=== PATIENT | male | born 1965 | race Caucasian/White ===

== ENCOUNTER 2018-04-06 07:51 | Day surgery (SDC) | payer OTHER ==
[2018-04-06] MEDS ORDERED: MIDAZOLAM 1 MG/ML 2 ML INJ (09:40)
[2018-04-06] MEDS ORDERED: LIDOCAINE 2% (SDV) 5 ML INJ (09:40)
[2018-04-06] MEDS ORDERED: SUCCINYLCHOLINE CHLORIDE 100 MG/5 ML SYG IV (09:40)
[2018-04-06] MEDS ORDERED: PROPOFOL 20 ML (09:40)
[2018-04-06] MEDS ORDERED: FENTAnyl 50 MCG/ML VIAL (09:50)
[2018-04-06] MEDS ORDERED: DEXAMETHASONE 4 MG/ML 1 ML INJ ×2 (10:01→10:05)
[2018-04-06] MEDS ORDERED: FAMOTIDINE 20 MG INJ (10:01)
[2018-04-06] MEDS ORDERED: ONDANSETRON 4 MG INJ (10:01)
[2018-04-06] MEDS ORDERED: METOCLOPRAMIDE 10 MG INJ (10:30)
[2018-04-06] MEDS: LIDOCAINE 1% (MPF) 30 ML INJ (10:53)
[2018-04-06] MEDS ORDERED: OXYCODONE/ACETAMINOPHEN (5/325) TAB PO (11:00)
[2018-04-06] MEDS ORDERED: MEPERIDINE 25 MG INJ IV (11:00)
[2018-04-06] MEDS ORDERED: HYDROmorphONE (0.2 MG/ML) 10ML SYG IV (11:00)
[2018-04-06] MEDS ORDERED: FENTAnyl 50 MCG/ML VIAL IV (11:00)
[2018-04-06] MEDS ORDERED: DIPHENHYDRAMINE 50 MG INJ IV (11:00)
[2018-04-06] MEDS ORDERED: ONDANSETRON 4 MG INJ IV (11:00)
== END 2018-04-06 13:45 | disposition home or self-care (01) ==
LOC: SDS 07:51
DX: J38.3 Other diseases of vocal cords (principal); E78.5 Hyperlipidemia, unspecified
CPT/HCPCS: 31541; 88305